=== PATIENT | female | born 1985 | race Caucasian/White ===

== ENCOUNTER 2018-01-25 09:24 | Outpatient (CLI) | payer BC, MEDICAID | END 2018-01-25 11:40 | disposition home or self-care (01) | LOC: OBT 09:24 → L-D 09:24 → OBT 11:40 | DX: O43.123 Velamentous insertion of umbilical cord, third trimester (principal); Z3A.38 38 weeks gestation of pregnancy | CPT/HCPCS: 76818 ==

== ENCOUNTER 2018-01-31 12:29 | Outpatient (CLI) | payer BC | END 2018-01-31 15:15 | disposition home or self-care (01) | LOC: OBT 12:29 → L-D 12:29 → OBT 15:15 | DX: O43.123 Velamentous insertion of umbilical cord, third trimester (principal); Z3A.39 39 weeks gestation of pregnancy | CPT/HCPCS: 76818 ==